=== PATIENT | male | born 1945 | race Caucasian/White ===

== ENCOUNTER 2020-04-15 01:15 | Emergency (ER) | payer MEDICARE ==
[~2020-04-15] VITALS: Ht 188 cm; Wt 104.0 kg
[2020-04-15 01:15] VITALS: BP 137/78
--- NOTE | 2020-04-15 01:51 | PHYS DOC ---
Past History Past Medical History: GERD, High Cholesterol, Hypertension Past Surgical History: Appendectomy, Hip Replacement, Knee Replacement, Other Additional Past Surgical Histo: POLYNIDAL CYST REMOVAL, LUMBAR, Alcohol Use: None Adult General Chief Complaint Chief Complaint: POST-OP PROBLEM HPI HPI Patient is a 74-year-old male who presents for postoperative problems. Reports having x2 cystic type lesions removed in his thoracic region and one in the p ilonidal cyst area approximately 1 month ago. Reports going back to PCP/surgeon (patient not sure who took it out) and had sutures removed approximately 2 weeks ago. He lives home alone but reports his daughter has been coming over daily and providing wound care. Patient reports bending over today and feeling a ripping with subsequent mild blood loss which concerned him prompting him to pack area with paper towel and report to our ER for evaluation. He is asymptomatic. Bleeding is stopped. He is concerned about potential worsening of healing wounds Review of Systems Review of Systems Fourteen body systems of review of systems have been reviewed. See HPI for pertinent positives and negative responses, other holden all other systems are negative, non-pertinent or non-contributory Allergies Allergies Allergies Coded Allergies Type Severity Reaction Last Updated Verified bacitracin Allergy Unknown 04/15/20 Yes iodine Allergy Unknown 04/15/20 Yes neomycin Allergy Unknown 04/15/20 Yes polymyxin B Allergy Unknown 04/15/20 Yes Physical Exam Physical Exam Constitutional: Well developed, well nourished, no acute distress, non-toxic appearance. HENT: Normocephalic, atraumatic, bilateral external ears normal, oropharynx moist, no oral exudates, nose normal. Eyes: PERRLA, EOMI, conjunctiva normal, no discharge. Neck: Normal range of motion, no tenderness, supple, no stridor. Cardiovascular: Heart rate regular, sinus rhythm, no murmurs rubs or gallops Lungs & Thorax: Bilateral breath sounds clear to auscultation Abdomen: Bowel sounds normal, soft, no tenderness, no masses, no pulsatile masses. Nonsurgical abdomen, no peritoneal signs Skin: Warm, dry, no erythema, no rash. Well-appearing wound status post pilonidal cyst removal, open with approximately 1 cm depth visible without exudate and/or any concerning signs of infection such as abscess formation, exudate, necrotic borders, ring of erythema or streaking Back: No tenderness, no CVA tenderness. Extremities: No tenderness, no cyanosis, no clubbing, ROM intact, no edema. Neurologic: Alert and oriented X 3, grossly normal motor & sensory function, no focal deficits noted. Psychologic: Affect normal, judgement normal, mood normal. Current Patient Data Vital Signs Vital Signs Date Time Temp Pulse Resp B/P (MAP) Pulse Ox O2 Delivery O2 Flow Rate FiO2 04/15/20 01:15 98.1 92 20 137/78 (97) 97 Room Air EKG EKG [] Radiology/Procedures Radiology/Procedures [] Heart Score Risk Factors: Risk Factors: DM, Current or recent (<one month) smoker, HTN, HLP, family history of CAD, obesity. Risk Scores: Risk Factors: DM, Current or recent (<one month) smoker, HTN, HLP, family history of CAD, obesity. Course & Med Decision Making Course & Med Decision Making Discussed with patient well-appearing/appropriate appearing lesion status post cystic removal. No indication for further diagnostic work-up, intervention or antibiotics Advise continued wound care as previously instructed and to call whomever perform surgery to schedule outpatient follow-up in upcoming 2 to 5 days Strict return precautions were discussed with good understanding by patient, all questions and concerns addressed prior to ER departure in stable condition Dragon Disclaimer Dragon Disclaimer This electronic medical record was generated, in whole or in part, using a voice recognition dictation system. Departure Departure: Impression: Primary Impression: Postoperative wound dehiscence Disposition: 01 DC HOME SELF CARE/HOMELESS Condition: STABLE Referrals: DINH JEFFERSON (PCP) Patient Instructions: Wound Care, [id number], Wound Dehiscence Additional Instructions: As discussed, please call your primary care physician/surgeon first thing Friday morning to schedule outpatient follow-up in upcoming 2 to 5 days time for repeat evaluation As discussed today, there is no indication for any antibiotic use or other invasive intervention for your wound dehiscence Continue good wound hygiene as discussed prior to departure, please use attached resources as an additional guide and source of instruction If any concerning signs or symptoms as discussed in person present prior to outpatient follow-up, please do not hesitate to come back for repeat examination Is a pleasure to take care of you and I wish you a speedy recovery! CHELLY GIL DO Apr 15, 2020 01:51
== END 2020-04-15 01:50 | disposition home or self-care (01) ==
LOC: ER 01:15
DX: T81.31XA Disruption of external operation (surgical) wound, not elsewhere classified, initial encounter (principal); L05.01 Pilonidal cyst with abscess; K21.9 Gastro-esophageal reflux disease without esophagitis; E78.00 Pure hypercholesterolemia, unspecified; I10 Essential (primary) hypertension; Z90.89 Acquired absence of other organs; Z98.890 Other specified postprocedural states; Z88.1 Allergy status to other antibiotic agents; Z91.040 Latex allergy status; X58.XXXA Exposure to other specified factors, initial encounter; Y93.89 Activity, other specified; Y92.89 Other specified places as the place of occurrence of the external cause; Y99.8 Other external cause status
CPT/HCPCS: 99282